=== PATIENT | female | born 2000 | race Caucasian/White ===

== ENCOUNTER 2024-11-06 09:13 | Outpatient (CLI) | payer BC, SELFPAY | END 2024-11-06 09:14 | disposition home or self-care (01) | LOC: MICIMG 09:14 | PROVIDERS: PCP Nurse Practitioner; Visit Provider Nurse Practitioner | DX: N63.24 Unspecified lump in the left breast, lower inner quadrant (principal) | CPT/HCPCS: 76642 ==

== ENCOUNTER 2025-04-23 09:25 | Outpatient (CLI) | payer BC, SELFPAY ==
--- NOTE | ~2025-04-23 | US_ITS ---
US breast LT limited 04/23/2025 09:43 Indication: Follow-up left breast mass Procedure: High-resolution Limited ultrasound of the left breast Comparison: Ultrasound dated 11/06/2024 Findings: Stable oval hypoechoic mass with parallel orientation, posterior acoustic enhancement and n o internal vascularity located at 6:00, 5 cm from the nipple measuring 2.1 x 1 times_. Impression: 1: Stable likely benign left breast mass measuring 2.1 cm. BI-RADS CATEGORY 3-PROBABLY BENIGN FINDING RECOMMENDATION: 6 month follow-up Limited left breast ultrasound recommended. Reviewed, dictated and finalized at location A. Impression: 1: Stable likely benign left breast mass measuring 2.1 cm. BI-RADS CATEGORY 3-PROBABLY BENIGN FINDING RECOMMENDATION: 6 month follow-up Limited left breast ultrasound recommended.
== END 2025-04-23 09:26 | disposition home or self-care (01) ==
PROVIDERS: PCP Nurse Practitioner; Visit Provider Surgery
DX: N63.25 Unspecified lump in the left breast, overlapping quadrants (principal); R92.8 Other abnormal and inconclusive findings on diagnostic imaging of breast
CPT/HCPCS: 76642